=== PATIENT | male | born 1950 | race Caucasian/White ===

== ENCOUNTER → 2017-12-25 | Outpatient (CLI) | payer OTHER ==
[~2017-12-25] VITALS: Ht 175.3 cm; Wt 78.6 kg
[~2017-12-25] MED LIST: BACTRIM DS TAB1 EACH PO; DISCOVY PO; FLOMAX0.4 MG PO; LIPITOR10 MG PO; LISINOPRIL20 MG PO; MAGNEBIND 4001 EACH PO; PREZCOBIX 8001 EACH PO; SYNTHROID125 MC1 PO; TIVICAY50 MG PO; VITAMIN D3400 UNIT PO
--- NOTE | ~2017-12-25 | HPC ---
[facility] [place] [address] PAIN MANAGEMENT CONSULTATION Name: MAREK GILLILAND Room #: REG [facility]denSonja.#: [id number] Admission: 12/25/17 Attend Phys: Manoj Wong DO Discharge: Date of : 52 Report #: [id number] THIS REPORT FOR: //name// CC: Patrick Wong DATE OF SERVICE: 12/25/2017 REFERRING PHYSICIAN: Patrick Bueno M.D. CHIEF COMPLAINT: Axial back pain. HISTORY OF PRESENT ILLNESS: As you know, the patient is a 67-year-old male with failed lumbar fusion, referred to our clinic for medial branch nerve blocks, radiofrequency lesioning. The patient returns today in followup visit having successfully completed 2 medial branch nerve blocks bilaterally, which provided good benefit. He returns for radiofrequency lesioning of the medial branch nerves of the left side and this is the first in the stage procedure. The patient is indicating the pain is a level of 6-7/10. He states the pain is constant, burning, aching, shooting, sharp and exacerbated with bending forward, sleeping, squatting and improves with rest and previous medial branch nerve radiofrequency lesionings. He returns today for lesioning of the left side. ALLERGIES: CODEINE and AMLODIPINE. CURRENT MEDICATIONS: Tamsulosin, Bactrim-DS, levothyroxine, cholecalciferol, calcium carbonate, lisinopril, atorvastatin, Prezcobix and Tivicay. SOCIAL HISTORY: The patient denies tobacco, alcohol or IV or illicit drug use. He is unaccompanied today. IMAGING DATA: No new imaging available. PQRS: The patient has osteoarthritis of the low back, bilateral knees. He does not have rheumatoid arthritis. He is not a fall risk, has not had a fall in the last 3 months. Today, pain is rated at around 6-7/10. He is not on blood thinners. He is not on any opioid medications. Pain impact score is calculated at 38/70, moderate. PHYSICAL EXAMINATION: VITAL SIGNS: Blood pressure 131/80, pulse is 61 and respiratory rate 14 and unlabored. The patient is 100% on room air. Height 5 feet 9 inches tall, weight 173.2 pounds and BMI calculated 25.6. GENERAL: Well-developed, well-nourished, well-hydrated 67-year-old male appearing stated age, pain today, rated at 6-7/10. [address] [address] PAIN MANAGEMENT CONSULTATION Name: MAREK GILLILAND Room #: REG CLMarlene MederosCayden#: [id number] Admission: 12/25/17 Attend Phys: Manoj Wong DO Discharge: Date of : 52 Report #: [id number] HEENT: Normocephalic and atraumatic. Pupils equal, round and reactive to light. EXTREMITIES: Show no clubbing, no cyanosis and no edema. MUSCULOSKELETAL: Lower extremity strength is symmetrical 5/5. Well-healed surgical scar of the lumbar spine. Muscle bulk and tone equal and symmetrical in the lower extremities. He is intact to light touch from L1 through S2 dermatomes. Seated straight leg raising negative. Supine straight leg raising negative. Modified Gaenslen's positive for axial low back pain. ASSESSMENT: 1. Lumbosacral spondylosis without radiculopathy. 2. Facet arthropathy of the lumbar spine. 3. 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 4. Chronic intractable pain. PLAN: 1. The patient has returned today in followup visit to begin radiofrequency lesioning of the medial branch nerves of the lumbar spine. The patient has been advised of the risks and benefits of the procedure. He states he understood and wished to proceed. The patient will return to our clinic in 2 weeks. At that time, we will discuss the second portion of the staged to radiofrequency lesioning procedure on the right side and we are completing the left today. PROCEDURE NOTE DESCRIPTION OF PROCEDURE: Left L3, L4, L5 medial branch radiofrequency lesioning. The procedure was explained. Informed consent was obtained from the patient. The patient was informed of the risks of procedure including infection, bleeding, nerve damage, failure to produce pain relief and postoperative discomfort lasting for several weeks. The patient indicates he understood and signed the consent to undergo the procedure. The patient was then taken to the fluoroscopy suite, placed in prone position with pillow under abdomen to decrease lumbar lordosis. Skin overlying lumbosacral area prepped and draped in aseptic fashion. AP imaging of the lumbar spine was used to identify the L2 through L5 vertebral bodies and the sacral ala. Target locations of the left side of the L4 vertebral level corresponding to the L3 medial branch nerve and the L5 vertebral level corresponding to the L4 medial branch nerve were established. Using a 25-gauge 1-1/4 inch needle, skin wheals were placed at the junction of the transverse process and the respective articular process using 1 mL of 1% lidocaine at each site. We were careful to only anesthetize skin and not the [facility] [address] [place] [address] PAIN MANAGEMENT CONSULTATION Name: MAREK GILLILAND Room #: [facility] [id number] Admission: 12/25/17 Attend Phys: Manoj Wogn DO Discharge: Date of : 52 Report #: [id number] deep tissue. The radiofrequency lesioning needles were then advanced under fluoroscopic guidance using a superior to inferior and medial to lateral approach to the dorsal, superior and medial aspect of the base of transverse processes. [place] were then directed caudally to reach the target location. The oblique view facilitated needle placement with properly positioned needles within the middle of the "eye" of the Arsh dog. At each site, needles rested on periosteum. Touching bone initially assured the needles were not placed too deeply. Radiofrequency lesioning of the L5 medial branch nerve on the left side was performed using a superior to inferior, lateral to medial approach under fluoroscopic guidance, placing the needle within the groove between the sacral ala and the superior articular process of S1. Needle rested on periosteum. Stimulation was performed at each level once the cannulas were in position. Sensory stimulation was performed at 0.5, 0.5, 0.5 at 50 Hz for the L3, L4, L5 medial branch nerves respectively. Good stimulation to the buttock and lumbar region was elicited indicating correct alignment of the posterior primary ramus. Absence of lower motor fasciculation was noted at 3 volts 2 Hz stimulation during testing of the L3, L4, L5 medial branch nerves respectively. Following this, affirmation of dissociation between sensory and motor stimulation, negative aspiration was noted both for heme and cerebrospinal fluid at each level. Next, 1 mL of bupivacaine 0.5% was injected and after a 90-second delay, lesions were performed at 80 degrees Celsius for 90 seconds. After the tips had cooled, 1 mL of a solution containing 1 mL 40 mg per mL, 40 mg total triamcinolone, 2 mL bupivacaine 0.5% injected slowly at each site. [place] were then removed. Sterile bandage placed over injection sites. The patient tolerated procedure well, carefully escorted to the recovery room in stable condition. The patient could move all 4 extremities purposefully after the procedure. After meeting our discharge criteria, the patient discharged home. <ELECTRONICALLY SIGNED> By: Manoj Wong DO 12/27/17 [id number] Manoj Wong DO /nt
[2017-12-25 14:06] VITALS: BP 131/80
== END | disposition home or self-care (01) ==
LOC: PAIN 07:02
DX: M47.817 Spondylosis without myelopathy or radiculopathy, lumbosacral region (principal); M46.96 Unspecified inflammatory spondylopathy, lumbar region; M96.1 Postlaminectomy syndrome, not elsewhere classified; G89.29 Other chronic pain; M17.0 Bilateral primary osteoarthritis of knee; Z98.890 Other specified postprocedural states; Z79.899 Other long term (current) drug therapy; Z88.6 Allergy status to analgesic agent; Z88.0 Allergy status to penicillin